=== PATIENT | female | born 1995 | race Caucasian/White ===

== ENCOUNTER 2017-01-07 08:24 | Day surgery (SDC) | payer MEDICAID ==
[~2017-01-07] VITALS: Wt 47.9 kg
[2017-01-07] VITALS (11 sets, daily range): BP systolic 90–102; BP diastolic 46–65; PULSE 60–88; RESP 16–36; TEMP 98.4
[~2017-01-07 08:24] MED LIST: AMOX1TAB67 PO; HYDR-3498 PO; METR500T14 PO
[2017-01-07] MEDS ORDERED: SOD CHLORIDE 0.9% 1,000 ML IV STA (08:58)
[2017-01-07] MEDS ORDERED: TYL325R PR (09:22)
[2017-01-07 09:53] LABS: BASOPHIL # 0.1 10^3/ul (0.0-0.1); BASOPHILS % 0.9 % (0.0-2.0); EOSINOPHILS # 0.1 10^3/ul (0.0-0.5); EOSINOPHILS % 0.8 % (0.0-7.0); HEMATOCRIT 37.2 % (37.0-47.0); HEMOGLOBIN 11.9 g/dl (12.0-16.0); LYMPHOCYTES # 1.8 10^3/ul (0.8-2.9); LYMPHOCYTES % 22.5 % (15.0-51.0); MEAN CORPUSCULAR HEMOGLOBIN 28.4 pg (29.0-33.0); MEAN CORPUSCULAR VOLUME 88.8 fl (82.0-101.0); MEAN PLATELET VOLUME 10.4 fl (7.4-10.4); MONOCYTE # 0.4 10^3/ul (0.3-0.9); MONOCYTES % 4.9 % (0.0-11.0); NEUTROPHILS % 70.6 % (39.0-77.0); PLATELET COUNT 304 10^3/UL (140-415); RED BLOOD COUNT 4.19 10^6/ul (4.20-5.40); RED CELL DISTRIBUTION WIDTH 11.9 % (11.5-14.5); WHITE BLOOD COUNT 7.9 10^3/ul (4.8-10.8)
[2017-01-07 10:14] LABS: ALBUMIN 4.2 g/dl (3.3-4.9); ALBUMIN/GLOBULIN RATIO 1.27; BILIRUBIN,INDIRECT 0.4 mg/dl (0-1.1); BILIRUBIN,TOTAL 0.4 mg/dl (0.2-1.3); CALCIUM 9.1 mg/dl (8.4-10.2); CREATININE 0.6 mg/dl (0.44-1.00); POTASSIUM 4.7 mmol/L (3.5-5.1); TOTAL PROTEIN 7.5 g/dl (6.1-8.1)
--- NOTE | 2017-01-07 10:14 | RADRPT ---
PROCEDURE: US OB. CLINICAL INDICATION: Vaginal bleeding , pelvic pain TECHNIQUE: Transabdominal and transvaginal views of the pelvis are available for review. COMPARISON: No prior studies are available for comparison. FINDINGS: There is a single intrauterine gestation with the crown-rump length measuring 0.4 cm an gestational sac measuring 1.2 cm, corresponding to a gestational age of 6 weeks and 1 day. The gestational sac is seen within the cervix. The endometrium is heterogeneous and thickened. The technologist was unable to measure the heart tones. The ovaries are normal in size and echogenicity. Normal Doppler flow is identified in both ovaries. The right ovary measures 2.0 x 0.8 x 1.0 cm. The left ovary measures 2.8 x 1.9 x 2.0 cm. There is a small hemorrhagic corpus luteum cyst in the l eft ovary. There is no free fluid. RPTAT: AA IMPRESSION: Single intrauterine with an estimated gestational age of 6 weeks and 1 day, based on ultra sound measurements. The gestational sac is seen within the cervix. The heart tones could not be measured. The fi ndings likely represent an in progress. Follow-up ultrasound and HCG is recommended. .Waldo Snlel MD, MD Date Time Electronically viewed and signed by .Waldo Snell MD, on 01/07/2017 10:14 .S/
--- NOTE | 2017-01-07 10:39 | ERA ---
ER Documentation Chief Complaint Date/Time DATE: 01/07/17 TIME: 10:38 Chief Complaint vag bleed, preg HPI This is a 21-year-old female who presents complaining of heavy bleeding at 1 day. . 6 weeks . Patient had spotting starting 3 days ago. Last menstrual period was 5 weeks ago. States she has mild pain in the pelvic area. Claims that she is using multiple pads per hour to control the bleeding. Describes the bleeding as chunks. Has not taken any medications to relieve the symptoms. Denies any aggravating/alleviating factors. No similar symptoms in past. Denies dysuria, discharge, fever, headache, cough, abdominal pain. Denies any significant past medical history. Denies family history. Has no other complaints and describes no other associated manifestations. Nursing notes have been reviewed and are consistent with a history given. ROS All systems reviewed and are negative except as per history of present illness. Medications Home Meds Active Scripts Acetaminophen (Acephen) 325 Mg Supp.rect, 1 SUPP NC Q4 Y for PAIN AND OR ELEVATED TEMP, #8 SUPP Prov:CHONG VARGAS PA-C 01/07/17 Hydrocodone Bit-Acetaminophen* ([place]*) 5-325 Mg Tab, 1 TAB PO Q6 Y for PAIN, # 20 TAB Prov:AMA MARTINEZ 07/15/15 Amoxicillin-Clavulanate K* (Augmentin*) 500 Mg Tab, 500 MG PO BID for 7 Days, TAB Prov:JUANAMA BECK C 07/15/15 Metronidazole (Flagyl) 500 Mg Tab, 500 MG PO Q8 for 7 Days, TAB Prov:AMA MARTINEZ 07/15/15 Allergies Allergies: Coded Allergies: No Known Allergies (Verified Allergy, Unknown, 03/26/15) PMhx/Soc Medical and Surgical Hx: pt denies Medical Hx, pt denies Surgical Hx Hx Alcohol Use: No Hx Substance Use: No Hx Tobacco Use: No Physical Exam Vitals Physical Exam Const: Well-developed 21-year-old female in mild distress. Head: Atraumatic Eyes: Normal Conjunctiva ENT: Normal External Ears, Nose and Mouth. Neck: Full range of motion..~ No meningismus. Resp: Clear to auscultation bilaterally Cardio: Regular rate and rhythm, no murmurs Abd: Soft, non tender, non distended. Normal bowel sounds Skin: No petechiae or rashes Back: No midline or flank tenderness Ext: No cyanosis, or edema Neur: Awake and alert Psych: Normal Mood and Affect Reproductive: Bleeding on the chair when patient stood up. Results 24 hrs Laboratory Tests Test 01/07/17 09:15 01/07/17 09:18 01/07/17 11:14 01/07/17 13:00 White Blood Count 7.910^3/ul Red Blood Count 4.1910^6/ul Hemoglobin 11.9g/dl Hematocrit 37.2% Mean Corpuscular Volume 88.8fl Mean Corpuscular Hemoglobin 28.4pg Mean Corpuscular Hemoglobin Concent 32.0g/dl Red Cell Distribution Width 11.9% Platelet Count 04992^3/UL Mean Platelet Volume 10.4fl Neutrophils % 70.6% Lymphocytes % 22.5% Monocytes % 4.9% Eosinophils % 0.8% Basophils % 0.9% Nucleated Red Blood Cells % 0.0/100WBC Neutrophils # (Manual) 5.610^3/ul Lymphocytes # 1.810^3/ul Monocytes # 0.410^3/ul Eosinophils # 0.110^3/ul Basophils # 0.110^3/ul Nucleated Red Blood Cells # 0.010^3/ul Sodium Level 143mmol/L Potassium Level 4.7mmol/L Chloride Level 103mmol/L Carbon Dioxide Level 27mmol/L Anion Gap 18 Blood Urea Nitrogen 12mg/dl Creatinine 0.60mg/dl Glucose Level 91mg/dl Calcium Level 9.1mg/dl Total Bilirubin 0.4mg/dl Direct Bilirubin 0.00mg/dl Indirect Bilirubin 0.4mg/dl Aspartate Amino Transf (AST/SGOT) 26IU/L Alanine Aminotransferase (ALT/SGPT) 30IU/L Alkaline Phosphatase 71IU/L Total Protein 7.5g/dl Albumin 4.2g/dl Globulin 3.30g/dl Albumin/Globulin Ratio 1.27 Beta HCG, Quantitative 6301.7mIU/ml Prothrombin Time 12.9Sec Prothrombin Time Ratio 1.0 INR International Normalized Ratio 0.97 Activated Partial Thromboplast Time 29.4Sec Urine Color STRAW Urine Clarity CLEAR Urine pH 5.0 Urine Specific [place] 1.016 Urine Ketones NEGATIVEmg/dL Urine Nitrite NEGATIVEmg/dL Urine Bilirubin NEGATIVEmg/dL Urine Urobilinogen NEGATIVEmg/dL Urine Leukocyte Esterase NEGATIVELeu/ul Urine Microscopic RBC > 182/HPF Urine Microscopic WBC 1/HPF Urine Hemoglobin 3+mg/dL Urine Glucose NEGATIVEmg/dL Urine Total Protein NEGATIVEmg/dl Current Medications Medications (Trade) Dose Ordered Sig/Elizabeth Route PRN Reason Start Time Stop Time Status Last Admin Dose Admin Sodium Chloride 1,000 ml @ 1,000 mls/hr Q1H STAT IV 01/07/17 08:58 01/07/17 09:57 DC 01/07/17 09:17 Sodium Chloride (NS) 1,000 ml @ 1,000 mls/hr Q1H ONCE IV 01/07/17 12:30 01/07/17 13:29 DC Meperidine HCl (Demerol) 25 mg STK-MED ONCE .ROUTE 01/07/17 13:54 01/07/17 13:55 DC Hydromorphone HCl (Dilaudid (Rec)) 0.2 mg PACU ORDER PRN IV MILD PAIN LEVEL 1-3 01/07/17 14:00 01/07/17 18:00 DC Hydromorphone HCl (Dilaudid (Rec)) 0.4 mg PACU ORDER PRN IV MODERATE PAIN LEVEL 4-6 01/07/17 14:00 01/07/17 18:00 DC Fentanyl (Sublimaze) 25 mcg PACU ORDER PRN IV MILD PAIN LEVEL 1-3 01/07/17 14:00 01/07/17 18:00 DC Fentanyl (Sublimaze) 50 mcg PACU ODER PRN IV MODERATE PAIN LEVEL 4-6 01/07/17 14:00 01/07/17 18:00 DC Oxycodone/ Acetaminophen (Percocet (5/ 325)) 1 tab PACU ORDER PRN PO PAIN LEVEL 1-5 01/07/17 14:00 01/07/17 18:00 DC Ondansetron HCl (Zofran Inj) 4 mg PACU ORDER PRN IV NAUSEA AND/OR VOMITING 01/07/17 14:00 01/07/17 18:00 DC Meperidine HCl (Demerol) 25 mg PACU ORDER PRN IV POST-OP RIGORS 01/07/17 14:00 01/07/17 18:00 DC 01/07/17 14:07 Midazolam HCl (Versed) 2 mg STK-MED ONCE .ROUTE 01/07/17 13:03 01/07/17 16:18 DC Fentanyl (Sublimaze) 100 mcg STK-MED ONCE .ROUTE 01/07/17 13:03 01/07/17 16:18 DC Phenylephrine HCl (Rashad-Synephrine Inj Syg) 500 mcg STK-MED ONCE .ROUTE 01/07/17 13:15 01/07/17 16:18 DC Lidocaine 100 mg 100 mg STK-MED ONCE .ROUTE 01/07/17 13:32 01/07/17 16:20 DC Propofol (Diprivan) 20 ml @ ud STK-MED ONCE .ROUTE 01/07/17 13:32 01/07/17 16:21 DC Cefazolin Sodium (Ancef) 1 gm STK-MED ONCE .ROUTE 01/07/17 13:32 01/07/17 16:21 DC Ondansetron HCl (Zofran Inj) 4 mg STK-MED ONCE .ROUTE 01/07/17 13:33 01/07/17 16:21 DC Procedures/MDM Patient is being evaluated and worked up for vaginal bleeding as described in the history. My current differential diagnosis includes, but is not limited to, the following: Intrauterine versus ectopic , , ovulation, anovulatory cycle, and pelvic inflammatory disease, among others. The workup included CBC, CMP, type and screen, urine test, and US; which resulted in the following: Hemoglobin 11.9 PT/PTT: Within normal limits CMP: Anion gap 18 Ultrasound was read by the radiologist and given the following impression: Single intrauterine with an estimated gestational age of 6 weeks and 1 day, based on ultrasound measurements. The gestational sac is seen within the cervix. The heart tones could not be measured. The findings likely represent an in progress. Follow-up ultrasound and HCG is recommended. Liver cycle was consulted. Dr. Anders came to evaluate the patient. Stated since it was an incomplete that the patient would be taken to the OR for D&C and evacuation. Care of patient is being transferred to Dr. Anders's care The current most likely diagnosis is incomplete . Of my differential, I currently have little suspicion for ectopic , placenta previa, pelvic/vaginal infection, blood vessel rupture, or severe anemia. I have spoke with the patient regarding their condition and future management. They have verbally responded that they understand their status and treatment plan. Patient is being transferred to the OR and the case has been transferred to Dr. Anders. My attending has reviewed the case and agrees to the assessment and plan. Departure Diagnosis: Primary Impression: Vaginal bleeding in patient at less than 20 weeks gestation Condition: Fair Additional Instructions: Follow up with your DOUBLE SPINDLE SHAPER OPERATOR 2 days. Be sure to take today's test results ( provided within this packet) with you to your appointment. If you do not have an DOUBLE SPINDLE SHAPER OPERATOR, a handout of locations with contact information will be provided to you. Follow all the recommendations we have previously discussed and the following written recommendations: If symptoms change or worsen, return to the emergency department immediately. Do not put anything in your vagina. Do not have sex, douche, or use tampons; these actions may increase your risk for infection and miscarriage. Rest as directed. Do not exercise or engage in strenuous activities; such activities may cause labor or miscarriage. If you have any further questions, ask before you leave the hospital, or contact the medical provider managing your . CHONG VARGAS PA-C Jan 07, 2017 10:39 The current most likely diagnosis is incomplete . Of my differential, I currently have little suspicion for ectopic , placenta previa, pelvic/vaginal infection, blood vessel rupture, or severe anemia. I have spoke with the patient regarding their condition and future management. They have verbally responded that they understand their status and treatment plan. Departure Diagnosis: Primary Impression: Vaginal bleeding in patient at less than 20 weeks gestation Condition: Fair Additional Instructions: Follow up with your DOUBLE SPINDLE SHAPER OPERATOR 2 days. Be sure to take today's test results ( provided within this packet) with you to your appointment. If you do not have an DOUBLE SPINDLE SHAPER OPERATOR, a handout of locations with contact information will be provided to you. Follow all the recommendations we have previously discussed and the following written recommendations: If symptoms change or worsen, return to the emergency department immediately. Do not put anything in your vagina. Do not have sex, douche, or use tampons; these actions may increase your risk for infection and miscarriage. Rest as directed. Do not exercise or engage in strenuous activities; such activities may cause labor or miscarriage. If you have any further questions, ask before you leave the hospital, or contact the medical provider managing your . CHONG VARGAS PA-C Jan 07, 2017 10:39
[2017-01-07 12:00] LABS: INR 0.97; PROTIME 12.9 Sec (12.2-14.2)
[2017-01-07 12:01] LABS: PARTIAL THROMBOPLASTIN TIME 29.4 Sec (25.0-35.0)
[2017-01-07] MEDS ORDERED: SOD CHLORIDE 0.9% 1,000 ML IV ONE (12:30)
[2017-01-07] MEDS ORDERED: MIDAZOLAM 1 MG/ML 2 ML INJ ONE (13:03)
[2017-01-07] MEDS ORDERED: FENTAnyl 50 MCG/ML VIAL ONE (13:03)
[2017-01-07] MEDS ORDERED: PHENYLephrine (100 MCG/ML) 5ML SYG ONE (13:15)
[2017-01-07] MEDS ORDERED: LIDOCAINE 2% (SDV) 5 ML INJ ONE (13:32)
[2017-01-07] MEDS ORDERED: PROPOFOL 20 ML ONE (13:32)
[2017-01-07] MEDS ORDERED: CEFAZOLIN 1 GM INJ ONE (13:32)
[2017-01-07] MEDS ORDERED: ONDANSETRON 4 MG INJ ONE (13:33)
--- NOTE | 2017-01-07 13:45 | OPPN ---
Date/Time of Note Date/Time of Note DATE: 01/07/17 TIME: 13:43 Operative Report Preoperative Diagnosis Incomplete @6 weeks Postoperative Diagnosis same Operation/Procedure Performed D&C&Suction Provider: LALI BRENNAN M.D. Anesthesia Type: general Estimated blood loss: 10 - 50 ml's Specimens Product of conception Grafts/Implants: none Complications: no LALI BRENNAN M.D. Jan 07, 2017 13:45
[2017-01-07 13:51] LABS: ADD UMIC YES; UR ASCORBIC ACID NEGATIVE (NEGATIVE); UR BILIRUBIN (Dip) NEGATIVE (NEGATIVE); UR BLOOD (Dip) 3+ mg/dL (NEGATIVE); UR CLARITY CLEAR (CLEAR); UR COLOR STRAW (YELLOW); UR GLUCOSE (Dip) NEGATIVE (NEGATIVE); UR KETONES (Dip) NEGATIVE (NEGATIVE); UR LEUKOCYTE ESTERASE (Dip) NEGATIVE Leu/ul (NEGATIVE); UR NITRITE (Dip) NEGATIVE (NEGATIVE); UR RBC > 182 /HPF (0-5); UR SPECIFIC GRAVITY (Dip) 1.016 (1.003-1.030); UR TOTAL PROTEIN (Dip) NEGATIVE (NEGATIVE); UR UROBILINOGEN (Dip) NEGATIVE (NEGATIVE)
[2017-01-07] MEDS ORDERED: MEPERIDINE 25 MG INJ ONE (13:54)
[2017-01-07] MEDS ORDERED: FENTAnyl 50 MCG/ML VIAL IV PRN ×2 (14:00)
[2017-01-07] MEDS ORDERED: OXYCODONE/ACETAMINOPHEN (5/325) TAB PO PRN (14:00)
[2017-01-07] MEDS ORDERED: HYDROmorphONE (0.2 MG/ML) 10ML SYG IV PRN ×2 (14:00)
[2017-01-07] MEDS ORDERED: ONDANSETRON 4 MG INJ IV PRN (14:00)
[2017-01-07] MEDS ORDERED: MEPERIDINE 25 MG INJ IV PRN (14:00)
--- NOTE | 2017-01-07 15:22 | OPR ---
DATE OF OPERATION: 01/07/2017 PREOPERATIVE DIAGNOSIS: Incomplete . PREOPERATIVE DIAGNOSIS: Incomplete . OPERATION PERFORMED: Dilatation and curettage and suction. SURGEON: Mike Herman MD ANESTHESIOLOGIST: Dr. Murillo. ANESTHESIA: General. COMPLICATIONS: None. ESTIMATED BLOOD LOSS: Less than 50 mL. OPERATIVE PROCEDURE: The patient was taken to the operating room, where general anesthesia was found to be adequate. The patient was placed in dorsal lateral position, after prep and drape a weighted speculum was placed inside the abdominal cavity. The upper lip of the cervix was grasped using a single tooth tenaculum, and using a sponge forceps the products of conception were removed. Suction was inserted, size 7 and then intrauterine cavity was suctioned. Sharp curettage of the endometrial cavity was done. Hemostasis was achieved. The patient tolerated the procedure well, and was transferred to the recovery room in stable condition. There was no complication, regarding the surgery. Dictated By: Mike Herman MD /brionna/liliana /Document#: [id number]
--- NOTE | 2017-01-07 17:32 | HP ---
DATE OF ADMISSION: 01/07/2017 HISTORY OF PRESENT ILLNESS: The patient is a 21-year-old, 3, para 2, at 6-weeks gestational age with diagnosis of incomplete at 6-weeks gestational age admitted through the emergency room with vaginal bleeding. PAST MEDICAL HISTORY: Denies. PAST SURGICAL HISTORY: Denies. ALLERGIES: NO KNOWN DRUG ALLERGIES. PHYSICAL EXAMINATION: VITAL SIGNS: Stable. GENERAL: Normal. ABDOMEN: Tender, not distended. GENITOURINARY: There was around 5-6 mL in the vaginal vault and the cervix was 2 cm open. ASSESSMENT AND PLAN: The patient with diagnosis of incomplete , consented for dilatation and curettage and suction. Risks and benefits discussed. The patient signed the consent and was taken to the operating room. Dictated By: Mike Herman MD /brionna/sandro /Document#: [id number]
== END 2017-01-07 18:00 | disposition home or self-care (01) ==
LOC: FTE 08:24 → SDS 14:29
PROVIDERS: ATTEND General Practice
DX: O03.4 Incomplete spontaneous abortion without complication (principal)
CPT/HCPCS: 59812; 76801; 76817; 80053; 81001; 84702; 85025; 85610; 85730; 86900; 86901; 88305; J0690; J2175; J2250; J2405; J3010; J7030; Z7512; Z7610; J2370